=== PATIENT | female | born 1995 | race Two or more races ===

== ENCOUNTER 2020-03-29 01:30 | Emergency (ER) | payer OTHER ==
[~2020-03-29] VITALS: Ht 162.6 cm; Wt 42.6 kg
[2020-03-29] MEDS ORDERED: [UNRECOGNIZED DRUG - OTHER] (01:52)
[2020-03-29] MEDS ORDERED: VITAMIN C WIT1000 MG PO (05:48)
[2020-03-29] MEDS ORDERED: AZITHROMYCIN250 MG PO (05:48)
[2020-03-29] MEDS ORDERED: ACETAMINOPHEN650 M2 PO (05:48)
== END 2020-03-29 06:12 | disposition home or self-care (01) ==
LOC: ER 01:30
DX: U07.1 COVID-19 (principal); B34.9 Viral infection, unspecified; R05 Cough